=== PATIENT | male | born 1940 | race Caucasian/White ===

== ENCOUNTER → 2020-05-01 12:48 | Outpatient (BNVA) | payer MEDICARE, OTHER, SELFPAY | PROVIDERS: PCP Internal Medicine; Referring Provider Internal Medicine; Visit Provider Hospitalist | DX: J84.112 Idiopathic pulmonary fibrosis (principal); I35.1 Nonrheumatic aortic (valve) insufficiency; Z79.899 Other long term (current) drug therapy | CPT/HCPCS: 99212 ==

== ENCOUNTER 2020-06-19 07:16 | Outpatient (REF) | payer MEDICARE, OTHER, SELFPAY ==
[2020-06-19 07:59] LABS: MANUAL DIFF FLAG NO
[2020-06-19 08:01] LABS: Basophils Percent Auto 0.6 % (0-2); Eosinophils Absolute Auto 0.1 X10*3/uL (0.0-0.4); Eosinophils Percent Auto 1.6 % (0-4); Hematocrit 45.6 % (42-52); Imm Gran Abs Auto 0.02 X10*3/uL (0.00-0.03); Imm Gran Pct Auto 0.3 % (0.0-0.4); Lymphocytes Percent Auto 28.9 % (20-40); Mean Corpuscular HGB Conc 35.1 g/dl (31.0-36.0); Mean Platelet Volume 9.4 fL (9.4-12.4); Monocytes Absolute Auto 0.7 X10*3/uL (0.1-1.2); Monocytes Percent Auto 10.4 % (2-11); Neutrophils Absolute Auto 4.1 X10*3/uL (2.0-8.3); Neutrophils Percent Auto 58.2 % (45-73); Platelet Count 208 X10*3/uL (160-400); Red Cell Distribution Width 13.2 % (11.0-16.0); White Blood Count 7.1 X10*3/uL (4.8-10.8)
[2020-06-19 09:17] LABS: Erythrocyte Sedimentation Rate 5 MM/HR (0-15)
[2020-06-20 14:01] LABS: Scleroderma 70 Antibody <1.0 NEG AI (<1.0 NEG)
[2020-06-20 21:12] LABS: Cyclic Citrullinated Peptide <16 UNITS
[2020-06-23 10:01] LABS: Anti Nuclear Antibody Screen POSITIVE
[2020-06-24 01:48] LABS: Immunoglobulin E 23 kU/L (<OR=114)
[2020-06-25 19:42] LABS: Angiotensin Converting Enzyme 31 U/L (9-67)
[2020-06-25 20:08] LABS: Asperg fumigatus Precip Abs NEGATIVE (NEGATIVE); Micropoly faeni Abs NEGATIVE (NEGATIVE); Pigeon serum Abs NEGATIVE (NEGATIVE); Saccharo pora viridis Abs NEGATIVE (NEGATIVE); Thermo candidus Abs NEGATIVE (NEGATIVE); Thermoa vulgaris #1 NEGATIVE (NEGATIVE)
== END 2020-06-19 07:17 | disposition home or self-care (01) ==
LOC: HO.LAB 07:16
PROVIDERS: PCP Internal Medicine; Visit Provider Hospitalist
DX: J84.9 Interstitial pulmonary disease, unspecified (principal)
CPT/HCPCS: 36415; 82164; 82785; 85025; 85652; 86038; 86039; 86200; 86235; 86331; 86606; 86609

== ENCOUNTER → 2020-07-31 10:13 | Outpatient (BNVA) | payer MEDICARE, OTHER, SELFPAY | PROVIDERS: PCP Internal Medicine; Visit Provider Hospitalist | DX: Z76.89 Persons encountering health services in other specified circumstances (principal) | CPT/HCPCS: Q3014 ==

== ENCOUNTER 2021-02-09 09:48 | Outpatient (REF) | payer MEDICARE, OTHER, SELFPAY ==
--- NOTE | 2021-02-09 17:41 | PFT_ITS ---
Forced vital capacity is slightly decreased. FEV1, EWM41-25, and MVV are all normal. Post bronchodilator therapy, there is no significant change. Total lung capacity and residual volume slightly decreased. Diffusion capacity moderately decreased. CONCLUSION: No obstructive airway disorder. Mild restrictive pulmonary disorder. No response to bronchodilator therapy. Clinical correlation recommended. MD MIKHAIL Harrsion/DANIEL / [id number]
== END 2021-02-09 09:49 | disposition home or self-care (01) ==
LOC: HO.RESP 09:48
PROVIDERS: PCP Internal Medicine; Visit Provider Hospitalist
DX: J84.112 Idiopathic pulmonary fibrosis (principal); J84.9 Interstitial pulmonary disease, unspecified; J84.10 Pulmonary fibrosis, unspecified; J98.4 Other disorders of lung
CPT/HCPCS: 94060; 94727; 94729; 99212

== ENCOUNTER → 2021-08-27 09:07 | Outpatient (BNVA) | payer MEDICARE, OTHER, SELFPAY | PROVIDERS: PCP Internal Medicine; Visit Provider Hospitalist | DX: J84.9 Interstitial pulmonary disease, unspecified (principal); J84.10 Pulmonary fibrosis, unspecified; J84.112 Idiopathic pulmonary fibrosis; J98.4 Other disorders of lung | CPT/HCPCS: 99212 ==

== ENCOUNTER 2022-03-17 08:22 | Outpatient (REF) | payer MEDICARE, OTHER, SELFPAY ==
--- NOTE | ~2022-03-17 | CT_ITS ---
EXAMINATION: CT CHEST WITHOUT CONTRAST CLINICAL INFORMATION: Pulmonary fibrosis follow-up. COMPARISON: CT chest 02/27/2020. TECHNIQUE: Multidetector volumetric CT imaging of the chest was done. Axial MIP volume rendering provided. Sagittal and coronal reformatted images were obtained. This CT examination was performed using dose optimization techniques as appropriate, variously including the following: *Automated exposure control *Adjustment of mA and/or kV according to patient size (this includes techniques or standardized protocols for targeted exams where dose is matched to indication/reason for exam; i.e. extremities or head) *Use of iterative reconstruction technique DLP: 217 mGy-cm FINDINGS: STEEL TESTER: Well-expanded lungs. LUNGS: There is patchy parenchymal opacity and ground-glass density in the right lung apex with cystic changes and bronchiectasis in the right upper lobe slightly more prominent than the previous study. In addition a few scattered parenchymal opacities are also seen in the left upper lobe anteriorly and some ground-glass haziness as well. The dependent bilateral lower lobe prominent cystic changes seen are likely secondary to subpleural interstitial thickening and ground-glass attenuation. There is subpleural thickening as well in the right middle lobe and right lower lobe. Traction bronchiectasis is seen in both lower lobes. There are cystic changes. There is a 4 mm nodule in the right upper lobe axial image 49/6, subpleural anterior right upper lobe middle lobe 6 mm axial image 79/6, 6 mm parahilar right upper lobe nodule axial image 74/6, triangular-shaped nodule left lower lobe axial image 88/6, and a 4mm nodule centrally in the left upper lobe/lingula on axial image 95/6. MEDIASTINUM: Heart size is enlarged. No pericardial effusion is seen. Great vessels are of normal caliber. Thyroid lobes are symmetrical. The central trachea and the bronchi are widely patent. CORONARY ARTERY CALCIFICATION: There are mild coronary artery calcifications present. PLEURA: There is no pleural effusion. No pleural mass or thickening. AXILLA: There are small shotty lymph nodes in the bilateral axilla. UPPER ABDOMEN: Visualized liver, spleen, pancreas and bilateral adrenal glands are unremarkable. There are bilateral renal cysts. OSSEOUS STRUCTURES: No lytic or sclerotic process seen. There is mild ventral spondylosis of the mid and lower dorsal spine. CT/CT chest wo IV con IMPRESSION: Chronic interstitial lung changes Bilateral pulmonary nodules are stable. No new appearing nodules or acute consolidation seen. No abnormally sized mediastinal or hilar lymph nodes are seen. Fleischner guidelines were followed.
== END 2022-03-17 08:23 | disposition home or self-care (01) ==
LOC: HO.CT 08:22
PROVIDERS: PCP Internal Medicine; Visit Provider Hospitalist
DX: J98.4 Other disorders of lung (principal); J84.9 Interstitial pulmonary disease, unspecified; J84.10 Pulmonary fibrosis, unspecified
CPT/HCPCS: 71250

== ENCOUNTER → 2022-04-15 10:11 | Outpatient (BNVA) | payer MEDICARE, OTHER, SELFPAY | PROVIDERS: PCP Internal Medicine; Visit Provider Hospitalist | DX: J98.4 Other disorders of lung (principal); J84.9 Interstitial pulmonary disease, unspecified; J84.112 Idiopathic pulmonary fibrosis | CPT/HCPCS: 99212 ==

== ENCOUNTER 2023-02-09 11:14 | Outpatient (REF) | payer MEDICARE, OTHER, SELFPAY ==
--- NOTE | 2023-02-09 12:29 | PFT_ITS ---
FLOWS: 1. FEV1 78% of predicted at 2.22 L. 2. FVC 66% of predicted at 2.66 L. 3. FEV1 to FVC ratio of 0.83. 4. No bronchodilator response. LUNG VOLUMES: 1. Total lung capacity 60% of predicted at 4.26 L. 2. Residual volume 63% of predicted at 1.68 L. 3. Slow vital capacity 58% of predicted at 2.58 L. 4. Expiratory reserve volume 42% of predicted at 0.50 L. 5. Diffusion capacity is moderately decreased. Diffusion capacity had just been mildly decreased after correction for alveolar ventilation. IMPRESSION: Moderate restrictive ventilatory defect with no bronchodilator response. Combination of decreased diffusion capacity with restrictive ventilatory defect suggests underlying pulmonary parenchymal disease. Clinical correlation is advised. MD CHRIS Dan/MODL / [id number]
== END 2023-02-09 11:15 | disposition home or self-care (01) ==
LOC: HO.RESP 11:14
PROVIDERS: PCP Internal Medicine; Visit Provider Hospitalist
DX: J84.9 Interstitial pulmonary disease, unspecified (principal)
CPT/HCPCS: 94060; 94727; 94729

== ENCOUNTER → 2023-02-09 12:29 | Outpatient (BNV) | payer MEDICARE, OTHER, SELFPAY | PROVIDERS: PCP Internal Medicine; Visit Provider Internal Medicine Pulmonary Disease | DX: J84.9 Interstitial pulmonary disease, unspecified (principal) | CPT/HCPCS: 94060; 94727; 94729 ==

== ENCOUNTER 2023-05-09 10:05 | Outpatient (AMB) | payer MEDICARE, OTHER, SELFPAY ==
[2023-05-09 10:12] VITALS: BP 118/70; PULSE 90; O2SAT 95; BMI 26.6
--- NOTE | 2023-05-09 10:12 | A.OFFVIS_ITS ---
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 He was evaluated last year. Last year in September 2018 he did have a repeat CT scan of the chest done at [facility] demonstrating some slight interval progression of 8 interstitial lung disease. In addition to that he had multiple nodules measuring up to 5 mm in size. The patient has been doing relatively well denies any significant dyspnea on exertion. Denies any coughing or any chest pain. He continues to use the QVAR with good effect. He is due for another CT scan also repeat his pulmonary function studies. His last pulmonary function studies from 2016 demonstrated mild restrictive ventilatory defect consistent with this interstitial lung disease. 05/01/2020 the patient is here for pulmonary follow-up visit. Overall he feels well. He continues to exercise regularly. Sometimes walking 2-4 miles a day. He continues to stay busy. He has not noticed any significant worsening in the shortness of breath. He does have dyspnea on exertion mild in severity. He continues with the Flovent inhaler. He has not really noticed any improvement or any worsening. In the meantime we did review his CT scan of the chest and also his pulmonary function studies. It appears that he is having some interval worsening of the interstitial lung disease. There was a good amount of peripheral and basilar fibrosis with some honeycombing at the bases. He also has some areas of ground-glass opacities to a lesser amount. At this point she does not have any significant exposures. Will do additional testing to assess for chronic hypersensitivity pneumonitis and also to assess were connective tissue conditions. But this is suspicious that is in the form of idiopathic pulmonary fibrosis. I did talk about different anti fibrotic agents we can consider using. His pulmonary function studies do show interval worsening of his lung capacity within now moderate restrictive process and moderate to severe diffusion impairment. 07/31/2020 patient has a telephone visit. Overall the patient has been feeling well. His shortness of breath is been about the same. He had stop the inhaler has not noticed any significant worsening after stopping the inhaler. He was concerned about the side effects of potential anti fibrotic medications. Explained to him that the medicine due have side effects but the risk- benefits ratio needs to be considered needs to be considered especially if he has progressive interstitial lung disease. The patient will have repeat PFTs in 6 months which should be about a year since his last once. If there is any significant interval worsening of the pulmonary capacity then we would have to really consider different alternatives. Patient's was also on the phone. She was concerned about his potential progression of disease. She was wondering if going to [facility] for either her a 2nd opinion would be a good option. I did recommend that if they wanted to have a 2nd opinion to let me know and I will refer them. Therefore they will let me know. The meantime will follow up in 6 months after his PFTs. If however the patient is aware of worsening respiratory symptoms he is not to delay he is to call me to reassess the symptoms and her reassess his interstitial lung process. 02/09/2021 the patient is here for a pulmonary follow-up visit. Overall the patient has been feeling well. He is staying active. He did get a CPT device when he has been using on a daily basis. He feels like his breathing is about the same. He is exercising regularly. We again talked about the interstitial lung disease. Patient is happy with minimal medical interventions. He stopped using his inhaler as he has not needed it and did not feel like it was helping. In addition to that the patient did undergo pulmonary function studies and we were able to compare his PFTs from today to the ones from last year. It appears that his total lung capacity actually improved from 61% to 71% predicted. It is really reassuring. His gas exchange also is about the same and is spirometry numbers are about the same. Therefore since his numbers are better and the patient is doing well will follow-up with a CT scan in 6 months to address any ongoing changes of the interstitial lung disease. He continues to do well with the will need any medical interventions. If however the patient demonstrates any worsening symptoms he is to call me so we can address the issues on earlier time. Otherwise will follow up in [address] scan. 08/27/2021 the patient is here for a pulmonary follow-up visit. Overall feels about the same. He is staying active and doing continue walking. Denies any dyspnea on exertion. Except when going up a couple flights of stairs. Denies any worsening cough or any worsening respiratory symptoms. We did under go a brief walking oximetry in the patient's pulse ox did decrease down to about 91-92%. The patient was not symptomatic. The patient does not qualify for oxygen although he is low normal. Based on the decreased pulse oximetry will have him undergo a CT scan of the chest sometime in the fall 2021. Will follow- up with him after that. If the patient develops any worsening symptoms prior to that he is to call the office for an earlier evaluation. 04/15/2022 the patient is here for a pulmonary follow-up visit. Overall the patient is feeling well. No significant changes. Denies any cough or any chest discomfort. Denies any significant shortness of breath. He did have an interesting episode of neuropathic pain that was only transient lasting 1-2 weeks. Was vaccinated for change Goals he was not sure if it was related to the vaccine or something else. At this point the symptoms have gone away. He did undergo a CT scan of the chest that I personally reviewed recently. No si gnificant progression of his interstitial lung disease. I do believe there is some degree of evolution with the ground-glass opacities have become a little bit more reticular. But no new areas and this is reassuring. Based on the fact that there is no real progression of the interstitial lung disease there is no need to start antifibrotic agents at this time will plan to repeat his pulmonary function studies next year to see if there is any progression. If the patient has any worsening of his symptoms prior to that he is to call the office for an earlier evaluation. 05/09/2022 in brief the patient is here for a pulmonary follow-up visit. He has noticed increased shortness of breath throughout the year. Mild in severity. Also has noticed a worsening cough nasal congestion and ear pressure. He has been using the fluticasone nasal spray without any significant improvement. She is not using any inhalers. The patient did undergo pulmonary function studies which we personally reviewed together. It appears that his total lung capacity has dropped from 71% back in 2020 to now 60%. His if using capacity still 40%. Therefore based on his symptoms and daily worsening total l sean capacity will go ahead and request a CT scan at this time to see if there is any progression of his interstitial lung disease. If there is any worsening disease with consider starting low-dose amount of prednisone or start him on antifibrotic therapy depending on the appearance on the CT scan. [facility] Medical History (Updated 05/09/23 @ 13:37 by Yong Cheema MD) Chronic restrictive lung disease IPF (idiopathic pulmonary fibrosis) Aortic ejection murmur Chronic respiratory failure ILD (interstitial lung disease) Pulmonary fibrosis determined by high resolution computed tomography (Updated 02/09/21 @ 11:27 by RENETTA Zuniga) Patient Tobacco Use Status: Never used Tobacco Review of Systems Const Denies night sweats ENT Denies change in voice, Denies lip swelling, Denies mouth pain, Reports nasal congestion, Reports nasal discharge and Denies tongue swelling Card Denies chest pain and Reports dyspnea on exertion Resp Reports cough and Reports dyspnea on exertion GI Denies abdominal pain Musc Denies no additional complaints Neuro Denies Neuro-related abnormal movements Psych Denies no additional complaints Freedom/Lymph Denies easy bleeding and Denies lymphadenopathy Aller/Immun Denies lip swelling and Denies tongue swelling Physical Exam Vital Signs: Last Vital Signs Pulse 90 05/09/23 10:12 BP 118/70 05/09/23 10:12 Pulse Ox 95 05/09/23 10:12 Oxygen Delivery Method Room Air 05/09/23 10:12 BMI result Body Mass Index 26.6 Const General: alert HEENT General nose exam: Abnormal external nose present and Nasal discharge present Eyes Pupils: Equal, round and reactive pupils present Neck Neck: Yes normal visual inspection, Yes full ROM and Yes no lymphadenopathy Chest Chest palpation & inspection: normal inspection of the chest Resp Auscultation: rales bilateral at the base and diminished lung sounds Cardio Rate: regular rate Rhythm: regular rhythm Heart sounds: S1 normal heart sound present, S2 normal heart sound present, Murmur heart sound present systolic III/ and at the right sternal border and Normal, physiologic split S2 sound present GI Palpation (GI): Soft to palpation and nontender Auscultation: normal bowel sounds General: Yes no CVA tenderness Back/Spine/Pelvis Back: no CVA tenderness Skin General skin exam: rashes and/or lesions noted Neuro Cranial nerves: Yes Equal, round and reactive pupils present Assessment & Plan Assessment & Plan (1) ILD (interstitial lung disease): Code(s): J84.9 - Interstitial pulmonary disease, unspecified (2) Pulmonary fibrosis determined by high resolution computed tomography: Code(s): J84.10 - Pulmonary fibrosis, unspecified (3) IPF (idiopathic pulmonary fibrosis): Code(s): J84.112 - Idiopathic pulmonary fibrosis (4) Chronic restrictive lung disease: Comment: TLC 71%->60% Code(s): J98.4 - Other disorders of lung Plan - continue with pulmonary exercises -Conside fror antifibrotic therapy or prednisone if any evidence of progression on CT -CT Chest -Needs to continue with reflux diet and head of bed elevated to minimize micro aspirations into the lungs. -start anti histamines in am' -nasal rinsing with neti bottle with distilled water only -F/U 3-[address] chest Orders: Orders CT chest wo IV con Today J84.9 - Interstitial pulmonary disease, unspecified Medications: New cetirizine (Zyrtec) 10 mg PO DAILY 30 days PRN 30 tabs 3RF allergy symptoms Coding Level of Care Code Est Pt Level 4 (95085) Diagnoses ILD (interstitial lung disease) J84.9 Pulmonary fibrosis determined by high resolution computed tomography J84.10 IPF (idiopathic pulmonary fibrosis) J84.112 Chronic restrictive lung disease J98.4 Time Spent (min) 17
== END 2023-05-09 10:41 | disposition home or self-care (01) ==
PROVIDERS: PCP Internal Medicine; Visit Provider Hospitalist
DX: J84.9 Interstitial pulmonary disease, unspecified (principal); J84.10 Pulmonary fibrosis, unspecified; J84.112 Idiopathic pulmonary fibrosis; J98.4 Other disorders of lung
CPT/HCPCS: 99214

== ENCOUNTER → 2023-05-09 10:05 | Outpatient (BNVA) | payer MEDICARE, OTHER, SELFPAY | PROVIDERS: PCP Internal Medicine; Visit Provider Hospitalist | DX: J84.9 Interstitial pulmonary disease, unspecified (principal); J84.112 Idiopathic pulmonary fibrosis; J98.4 Other disorders of lung | CPT/HCPCS: 99212 ==

== ENCOUNTER 2023-07-08 13:00 | Outpatient (REF) | payer MEDICARE, OTHER, SELFPAY ==
--- NOTE | ~2023-07-08 | CT_ITS ---
EXAMINATION: CT CHEST WITHOUT CONTRAST CLINICAL INFORMATION: Interstitial pulmonary disease. COMPARISON: 03/17/2022 and 02/27/2020 TECHNIQUE: Multidetector volumetric CT imaging of the chest was done. Axial MIP volume rendering provided. Sagittal and coronal reformatted images were obtained. This CT examination was performed using dose optimization techniques as appropriate, variously including the following: *Automated exposure control *Adjustment of mA and/or kV according to patient size (this includes techniques or standardized protocols for targeted exams where dose is matched to indication/reason for exam; i.e. extremities or head) *Use of iterative reconstruction technique DLP: 146 mGy-cm FINDINGS: LUNGS: Subpleural reticular changes bilaterally with peripheral/subpleural groundglass opacities. There is bilateral traction bronchiectasis as well as thickening of the intralobular septa. No evidence of honeycombing. 5 mm subpleural nodule right upper lobe on image 83 series 11. 6 mm nodule left lower lobe on image 83 series 11. 5 mm perihilar nodule in the right upper lobe on image 58 of series 11. 3 mm nodule right upper lobe on image 46 of series 11. These nodules appear stable dating back to 02/27/2020. MEDIASTINUM: No bulky axillary, hilar or mediastinal lymphadenopathy. Dilated pulmonary arteries. Heart size is stable. No pericardial effusion. CORONARY ARTERY CALCIFICATION: Moderate. PLEURA: There is no pleural effusion. No pleural mass or thickening. UPPER ABDOMEN: Small hiatal hernia. OSSEOUS STRUCTURES: No destructive bone lesions. CT/CT chest wo IV con IMPRESSION: Progressive interstitial lung disease with a pattern suggestive of nonspecific interstitial pneumonitis. No change in bilateral pulmonary nodules since 02/27/2020.
== END 2023-07-08 13:01 | disposition home or self-care (01) ==
LOC: HO.CT 13:00
PROVIDERS: PCP Internal Medicine; Visit Provider Hospitalist
DX: J84.9 Interstitial pulmonary disease, unspecified (principal)
CPT/HCPCS: 71250

== ENCOUNTER 2023-08-15 09:25 | Outpatient (AMB) | payer MEDICARE, OTHER, SELFPAY ==
[2023-08-15 09:30] VITALS: BP 128/70; PULSE 92; O2SAT 96; BMI 25.8
--- NOTE | 2023-08-15 09:30 | A.OFFVIS_ITS ---
Intake Vital Signs 08/15/23 09:30 Height 5 ft 10 in Weight 180 lb BMI 25.8 BP 128/70 Blood Pressure Location Rt brachial Position Sitting Pulse 92 Pulse Source Pulse Oximeter Pulse Oximetry (%) 96 Oxygen Delivery Method Room Air Intake Visit Reasons: COPD Regulatory Agency Director Required: No Allergies lisinopril Allergy (Severe, Verified 08/15/23 09:33) Rash metoprolol Allergy (Intermediate, Verified 08/15/23 09:33) Rash HPI HPI Comments History of Present Illness Details The patient is a 83-year-old gentleman with a known history of allergic rhinitis, pulmonary nodules and interstitial lung disease. He was evaluated last year. Last year in September 2018 he did have a repeat CT scan of the chest done at [place] demonstrating some slight interval progression of 8 interstitial lung disease. In addition to that he had multiple nodules measuring up to 5 mm in size. The patient has been doing relatively well denies any significant dyspnea on exertion. Denies any coughing or any chest pain. He continues to use the QVAR with good effect. He is due for another CT scan also repeat his pulmonary function studies. His last pulmonary function studies from 2016 demonstrated mild restrictive ventilatory defect consistent with this interstitial lung disease. 05/01/2020 the patient is here for pulmonary follow-up visit. Overall he feels well. He continues to exercise regularly. Sometimes walking 2-4 miles a day. He continues to stay busy. He has not noticed any significant worsening in the shortness of breath. He does have dyspnea on exertion mild in severity. He continues with the Flovent inhaler. He has not really noticed any improvement or any worsening. In the meantime we did review his CT scan of the chest and also his pulmonary function studies. It appears that he is having some interval worsening of the interstitial lung disease. There was a good amount of peripheral and basilar fibrosis with some honeycombing at the bases. He also has some areas of ground-glass opacities to a lesser amount. At this point she does not have any significant exposures. Will do additional testing to assess for chronic hypersensitivity pneumonitis and also to assess were connective tissue conditions. But this is suspicious that is in the form of idiopathic pulmonary fibrosis. I did talk about different anti fibrotic agents we can consider using. His pulmonary function studies do show interval worsening of his lung capacity within now moderate restrictive process and moderate to severe diffusion impairment. 07/31/2020 patient has a telephone visit. Overall the patient has been feeling well. His shortness of breath is been about the same. He had stop the inhaler has not noticed any significant worsening after stopping the inhaler. He was concerned about the side effects of potential anti fibrotic medications. Explained to him that the medicine due have side effects but the risk- benefits ratio needs to be considered needs to be considered especially if he has pr ogressive interstitial lung disease. The patient will have repeat PFTs in 6 months which should be about a year since his last once. If there is any significant interval worsening of the pulmonary capacity then we would have to really consider different alternatives. Patient's was also on the phone. She was concerned about his potential progression of disease. She was wondering if going to [facility] for either her a 2nd opinion would be a good option. I did recommend that if they wanted to have a 2nd opinion to let me know and I will refer them. Therefore they will let me know. The meantime will follow up in 6 months after his PFTs. If however the patient is aware of worsening respiratory symptoms he is not to delay he is to call me to reassess the symptoms and her reassess his interstitial lung process. 02/09/2021 the patient is here for a pulmonary follow-up visit. Overall the patient has been feeling well. He is staying active. He did get a CPT device when he has been using on a daily basis. He feels like his breathing is about the same. He is exercising regularly. We again talked about the interstitial lung disease. Patient is happy with minimal medical interventions. He stopped using his inhaler as he has not needed it and did not feel like it was helping. In addition to that the patient did undergo pulmonary function studies and we were able to compare his PFTs from today to the ones from last year. It appears that his total lung capacity actually improved from 61% to 71% predicted. It is really reassuring. His gas exchange also is about the same and is spirometry numbers are about the same. Therefore since his numbers are better and the patient is doing well will follow-up with a CT scan in 6 months to address any ongoing changes of the interstitial lung disease. He continues to do well with the will need any medical interventions. If however the patient demonstrates any worsening symptoms he is to call me so we can address the issues on earlier time. Otherwise will follow up in [address] scan. 08/27/2021 the patient is here for a pulmonary follow-up visit. Overall feels about the same. He is staying active and doing continue walking. Denies any dyspnea on exertion. Except when going up a couple flights of stairs. Denies any worsening cough or any worsening respiratory symptoms. We did undergo a brief walking oximetry in the patient's pulse ox did decrease down to about 91-92%. The patient was not symptomatic. The patient does not qualify for oxygen although he is low normal. Based on the decreased pulse oximetry will have him undergo a CT scan of the chest sometime in the fall 2021. Will follow-up with him after that. If the patient develops any worsening symptoms prior to that he is to call the office for an earlier evaluation. 04/15/2022 the patient is here for a pulmonary follow-up visit. Overall the patient is feeling well. No significant changes. Denies any cough or any chest discomfort. Denies any significant shortness of breath. He did have an interesting episode of neuropathic pain that was only transient lasting 1-2 weeks. Was vaccinated for change Goals he was not sure if it was related to the vaccine or something else. At this point the symptoms have gone away. He did undergo a CT scan of the chest that I personally reviewed recently. No significant progression of his interstitial lung disease. I do believe there is some degree of evolution with the ground-glass opacities have become a little bit more reticular. But no new areas and this is reassuring. Based on the fact that there is no real progression of the interstitial lung disease there is no need to start antifibrotic agents at this time will plan to repeat his pulmonary function studies next year to see if there is any progression. If the patient has any worsening of his symptoms prior to that he is to call the office for an earlier evaluation. 05/09/2022 in brief the patient is here for a pulmonary follow-up visit. He has noticed increased shortness of breath throughout the year. Mild in severity. Also has noticed a worsening cough nasal congestion and ear pressure. He has been using the fluticasone nasal spray without any significant improvement. She is not using any inhalers. The patient did undergo pulmonary function studies which we personally reviewed together. It appears that his total lung capacity has dropped from 71% back in 2020 to now 60%. His if using capacity still 40%. Therefore based on his symptoms and daily worsening total lung capacity will go ahead and request a CT scan at this time to see if there is any progression of his interstitial lung disease. If there is any worsening disease with consider starting low-dose amount of prednisone or start him on antifibrotic therapy depending on the appearance on the CT scan. 08/15/2023 the patient is here for pulmonary follow-up visit. Overall he is doing fairly well. He does have an intermittent cough that seems to be getting worse. Moderate severity. Also dyspnea on exertion, [id number] in severity. The patient did have a CT scan of the chest that we personally reviewed. It appears that he has not been some interval progression of the interstitial lung disease primarily the left lung that was not as involved. Appears to have some areas of ground-glass opacities and also reticular changes suggesting a nonspecific interstitial pneumonia likely fibrotic type. We did talk about considering medications at this point based on his worsening symptoms and worsening findings on the CT scan. The patient is agreeable to starting a small dose of prednisone. We did talk about Ofev but the patient would like to hold off on that at this time. Right now he is did not with significant issues with his in health now that she has been diagnosed with stage IV renal cell cancer. Therefore here given start 10 mg of prednisone and then taper to 10 mg every other day. After 6-8 weeks given wean off it. Will follow-up in 3 months. If the patient has any worsening symptoms prior to that he will call for an earlier assessment. [facility] Medical History (Updated 05/09/23 @ 13:37 by Yong Cheema MD) Chronic restrictive lung disease IPF (idiopathic pulmonary fibrosis) Aortic ejection murmur Chronic respiratory failure ILD (interstitial lung disease) Pulmonary fibrosis determined by high resolution computed tomography Social History (Updated 02/09/21 @ 11:27 by RENETTA Zuniga) Patient Tobacco Use Status: Never used Tobacco Review of Systems Const Denies night sweats ENT Denies change in voice, Denies lip swelling, Denies mouth pain, Reports nasal congestion, Reports nasal discharge and Denies tongue swelling Card Denies chest pain and Reports dyspnea on exertion Resp Reports cough and Reports dyspnea on exertion GI Denies abdominal pain Musc Denies no additional complaints Neuro Denies Neuro-related abnormal movements Psych Denies no additional complaints Freedom/Lymph Denies easy bleeding and Denies lymphadenopathy Aller/Immun Denies lip swelling and Denies tongue swelling Physical Exam Vital Signs: Last Vital Signs Pulse 92 08/15/23 09:30 BP 128/70 08/15/23 09:30 Pulse Ox 96 08/15/23 09:30 Oxygen Delivery Method Room Air 08/15/23 09:30 BMI result Body Mass Index 25.8 Const General: alert HEENT General nose exam: Abnormal external nose present and Nasal discharge present Eyes Pupils: Equal, round and reactive pupils present Neck Neck: Yes normal visual inspection, Yes full ROM and Yes no lymphadenopathy Chest Chest palpation & inspection: normal inspection of the chest Resp Auscultation: rales bilateral at the base and diminished lung sounds Cardio Rate: regular rate Rhythm: regular rhythm Heart sounds: S1 normal heart sound present, S2 normal heart sound present, Murmur heart sound present systolic III/ and at the right sternal border and Normal, physiologic split S2 sound present GI Palpation (GI): Soft to palpation and nontender Auscultation: normal bowel sounds General: Yes no CVA tenderness Back/Spine/Pelvis Back: no CVA tenderness Skin General skin exam: rashes and/or lesions noted Neuro Cranial nerves: Yes Equal, round and reactive pupils present Assessment & Plan Assessment & Plan (1) ILD (interstitial lung disease): Code(s): J84.9 - Interstitial pulmonary disease, unspecified (2) Pulmonary fibrosis determined by high resolution computed tomography: Code(s): J84.10 - Pulmonary fibrosis, unspecified (3) IPF (idiopathic pulmonary fibrosis): Code(s): J84.112 - Idiopathic pulmonary fibrosis (4) Chronic restrictive lung disease: Comment: TLC 71%->60% Code(s): J98.4 - Other disorders of lung Plan - continue with pulmonary exercises -Conside fror antifibrotic therapy or prednisone if any evidence of progression on CT start low dose prednisone x 6-8 weeks -CT Chest (interval worsening, slowly) -Needs to continue with reflux diet and head of bed elevated to minimize micro aspirations into the lungs. -nasal rinsing with neti bottle with distilled water only -F/U 3-4 months Medications: New prednisone 10 mg PO DAILY 30 days 30 tabs 3RF Coding Level of Care Code Est Pt Level 4 (06667) Diagnoses ILD (interstitial lung disease) J84.9 Pulmonary fibrosis determined by high resolution computed tomography J84.10 IPF (idiopathic pulmonary fibrosis) J84.112 Chronic restrictive lung disease J98.4 Time Spent (min) 17
== END 2023-08-15 10:04 | disposition home or self-care (01) ==
PROVIDERS: PCP Internal Medicine; Visit Provider Hospitalist
DX: J84.9 Interstitial pulmonary disease, unspecified (principal); J84.10 Pulmonary fibrosis, unspecified; J84.112 Idiopathic pulmonary fibrosis; J98.4 Other disorders of lung
CPT/HCPCS: 99214

== ENCOUNTER → 2023-08-15 09:25 | Outpatient (BNVA) | payer MEDICARE, OTHER, SELFPAY | PROVIDERS: PCP Internal Medicine; Visit Provider Hospitalist | DX: J84.9 Interstitial pulmonary disease, unspecified (principal); J84.10 Pulmonary fibrosis, unspecified; J84.112 Idiopathic pulmonary fibrosis; J98.4 Other disorders of lung | CPT/HCPCS: 99212 ==

== ENCOUNTER 2023-11-23 08:48 | Outpatient (AMB) | payer MEDICARE, OTHER, SELFPAY ==
--- NOTE | 2023-11-23 08:54 | A.OFFVIS_ITS ---
Vital Signs 11/23/23 08:55 Height 5 ft 10 in Weight 185 lb BMI 26.5 Pulse 89 Pulse Source Pulse Oximeter Pulse Oximetry (%) 94 Oxygen Delivery Method Room Air Intake Visit Reasons: COPD Allergies lisinopril Allergy (Severe, Verified 11/23/23 08:56) Rash metoprolol Allergy (Intermediate, Verified 11/23/23 08:56) Rash HPI Comments Details: The patient is a 83-year-old gentleman with a known history of allergic rhinitis, pulmonary nodules and interstitial lung disease. He was evaluated last year. Last year in September 2018 he did have a repeat CT scan of the chest done at [facility] demonstrating some slight interval progression of 8 interstitial lung disease. In addition to that he had multiple nodules measuring up to 5 mm in size. The patient has been doing relatively well denies any significant dyspnea on exertion. Denies any coughing or any chest pain. He continues to use the QVAR with good effect. He is due for another CT scan also repeat his pulmonary function studies. His last pulmonary function studies from 2016 demonstrated mild restrictive ventilatory defect consistent with this interstitial lung disease. 05/01/2020 the patient is here for pulmonary follow-up visit. Overall he f eels well. He continues to exercise regularly. Sometimes walking 2-4 miles a day. He continues to stay busy. He has not noticed any significant worsening in the shortness of breath. He does have dyspnea on exertion mild in severity. He continues with the Flovent inhaler. He has not really noticed any improvement or any worsening. In the meantime we did review his CT scan of the chest and also his pulmonary function studies. It appears that he is having some interval worsening of the interstitial lung disease. There was a good amount of peripheral and basilar fibrosis with some honeycombing at the bases. He also has some areas of ground-glass opacities to a lesser amount. At this point she does not have any significant exposures. Will do additional testing to assess for chronic hypersensitivity pneumonitis and also to assess were connective tissue conditions. But this is suspicious that is in the form of idiopathic pulmonary fibrosis. I did talk about different anti fibrotic agents we can consider using. His pulmonary function studies do show interval worsening of his lung capacity within now moderate restrictive process and moderate to severe diffusion impairment. 07/31/2020 patient has a telephone visit. Overall the patient has been feeling well. His shortness of breath is been about the same. He had stop the inhaler has not noticed any significant worsening after stopping the inhaler. He was concerned about the side effects of potential anti fibrotic medications. Explained to him that the medicine due have side effects but the risk- benefits ratio needs to be considered needs to be considered especially if he has progressive interstitial lung disease. The patient will have repeat PFTs in 6 months which should be about a year since his last once. If there is any significant interval worsening of the pulmonary capacity then we would have to really consider different alternatives. Patient's was also on the phone. She was concerned about his potential progression of disease. She was wondering if going to [facility] for either her a 2nd opinion would be a good option. I did recommend that if they wanted to have a 2nd opinion to let me know and I will refer them. Therefore they will let me know. The meantime will follow up in 6 months after his PFTs. If however the patient is aware of worsening respiratory symptoms he is not to delay he is to call me to reassess the symptoms and her reassess his interstitial lung process. 02/09/2021 the patient is here for a pulmonary follow-up visit. Overall the patient has been feeling well. He is staying active. He did get a CPT device when he has been using on a daily basis. He feels like his breathing is about the same. He is exercising regularly. We again talked about the interstitial lung disease. Patient is happy with minimal medical interventions. He stopped using his inhaler as he has not needed it and did not feel like it was helping. In addition to that the patient did undergo pulmonary function studies and we were able to compare his PFTs from today to the ones from last year. It appears that his total lung capacity actually improved from 61% to 71% predicted. It is really reassuring. His gas exchange also is about the same and is spirometry numbers are about the same. Therefore since his numbers are better and the patient is doing well will follow-up with a CT scan in 6 months to address any ongoing changes of the interstitial lung disease. He continues to do well with the will need any medical interventions. If however the patient demonstrates any worsening symptoms he is to call me so we can address the issues on earlier time. Otherwise will follow up in [address] scan. 08/27/2021 the patient is here for a pulmonary follow-up visit. Overall feels about the same. He is staying active and doing continue walking. Denies any dyspnea on exertion. Except when going up a couple flights of stairs. Denies any worsening cough or any worsening respiratory symptoms. We did undergo a brief walking oximetry in the patient's pulse ox did decrease down to about 91-92%. The patient was not symptomatic. The patient does not qualify for oxygen although he is low normal. Based on the decreased pulse oximetry will have him undergo a CT scan of the chest sometime in the fall 2021. Will follow-up with him after that. If the patient develops any worsening symptoms prior to that he is to call the office for an earlier evaluation. 04/15/2022 the patient is here for a pulmonary follow-up visit. Overall the patient is feeling well. No significant changes. Denies any cough or any chest discomfort. Denies any significant shortness of breath. He did have an interesting episode of neuropathic pain that was only transient lasting 1-2 weeks. Was vaccinated for change Goals he was not sure if it was related to the vaccine or something else. At this point the symptoms have gone away. He did undergo a CT scan of the chest that I personally reviewed recently. No significant progression of his interstitial lung disease. I do believe there is some degree of evolution with the ground-glass opacities have become a little bit more reticular. But no new areas and this is reassuring. Based on the fact that there is no real progression of the interstitial lung disease there is no need to start antifibrotic agents at this time will plan to repeat his pulmonary function studies next year to see if there is any progression. If the patient has any worsening of his symptoms prior to that he is to call the office for an earlier evaluation. 05/09/2022 in brief the patient is here for a pulmonary follow-up visit. He has noticed increased shortness of breath throughout the year. Mild in severity. Also has noticed a worsening cough nasal congestion and ear pressure. He has been using the fluticasone nasal spray without any significant improvement. She is not using any inhalers. The patient did undergo pulmonary function studies which we personally reviewed together. It appears that his total lung capacity has dropped from 71% back in 2020 to now 60%. His if using capacity still 40%. Therefore based on his symptoms and daily worsening total lung capacity will go ahead and request a CT scan at this time to see if there is any progression of his interstitial lung disease. If there is any worsening disease with consider starting low-dose amount of prednisone or start him on antifibrotic therapy depending on the appearance on the CT scan. 08/15/2023 the patient is here for pulmonary follow-up visit. Overall he is doing fairly well. He does have an intermittent cough that seems to be getting worse. Moderate severity. Also dyspnea on exertion, [id number] in sev erity. The patient did have a CT scan of the chest that we personally reviewed. It appears that he has not been some interval progression of the interstitial lung disease primarily the left lung that was not as involved. Appears to have some areas of ground-glass opacities and also reticular changes suggesting a nonspecific interstitial pneumonia likely fibrotic type. We did talk about considering medications at this point based on his worsening symptoms and worsening findings on the CT scan. The patient is agreeable to starting a small dose of prednisone. We did talk about Ofev but the patient would like to hold off on that at this time. Right now he is did not with significant issues with his in health now that she has been diagnosed with stage IV renal cell cancer. Therefore here given start 10 mg of prednisone and then taper to 10 mg every other day. After 6-8 weeks given wean off it. Will follow-up in 3 months. If the patient has any worsening symptoms prior to that he will call for an earlier assessment. 11/23/2023 the patient is here for a pulmonary follow-up visit. He completed the course of prednisone. Did not see any significant improvement in his breathing. He is still going to the gym and staying active. He has still grieving the loss of his who a couple months ago. The patient does have significant crackles on examination. In view of his worsening interstitial lung disease in the appearance of idiopathic pulmonary fibrosis I do believe that he had be a good candidate for Ofev. Will go ahead and submit a prescription at this time. Will have also undergo a chest x-ray and PFTs in the coming months. [facility] Medical History (Updated 05/09/23 @ 13:37 by Yong Cheema MD) Chronic restrictive lung disease IPF (idiopathic pulmonary fibrosis) Aortic ejection murmur Chronic respiratory failure ILD (interstitial lung disease) Pulmonary fibrosis determined by high resolution computed tomography Social History (Updated 02/09/21 @ 11:27 by RENETTA Zuniga) Patient Tobacco Use Status: Never used Tobacco Review of Systems Const Denies night sweats ENT Denies change in voice, Denies lip swelling, Denies mouth pain, Reports nasal congestion, Reports nasal discharge and Denies tongue swelling Card Denies chest pain and Reports dyspnea on exertion Resp Reports cough and Reports dyspnea on exertion GI Denies abdominal pain Musc Denies no additional complaints Neuro Denies Neuro-related abnormal movements Psych Denies no additional complaints Freedom/Lymph Denies easy bleeding and Denies lymphadenopathy Aller/Immun Denies lip swelling and Denies tongue swelling Physical Exam Vital Signs: Last Vital Signs Pulse 89 11/23/23 08:55 Pulse Ox 94 11/23/23 08:55 Oxygen Delivery Method Room Air 11/23/23 08:55 BMI result Body Mass Index 26.5 Const General: alert HEENT General nose exam: Abnormal external nose present and Nasal discharge present Eyes Pupils: Equal, round and reactive pupils present Neck Neck: Yes normal visual inspection, Yes full ROM and Yes no lymphadenopathy Chest Chest palpation & inspection: normal inspection of the chest Resp Auscultation: rales bilateral at the base and diminished lung sounds Cardio Rate: regular rate Rhythm: regular rhythm Heart sounds: S1 normal heart sound present, S2 normal heart sound present, Murmur heart sound present systolic III/ and at the right sternal border and Normal, physiologic split S2 sound present GI Palpation (GI): Soft to palpation and nontender Auscultation: normal bowel sounds General: Yes no CVA tenderness Back/Spine/Pelvis Back: no CVA tenderness Skin General skin exam: rashes and/or lesions noted Neuro Cranial nerves: Yes Equal, round and reactive pupils present Assessment & Plan Assessment & Plan (1) ILD (interstitial lung disease): Code(s): J84.9 - Interstitial pulmonary disease, unspecified Category: Medical (2) Pulmonary fibrosis determined by high resolution computed tomography: Code(s): J84.10 - Pulmonary fibrosis, unspecified Category: Medical (3) IPF (idiopathic pulmonary fibrosis): Code(s): J84.112 - Idiopathic pulmonary fibrosis Category: Medical (4) Chronic restrictive lung disease: Comment: TLC 71%->60% Code(s): J98.4 - Other disorders of lung Category: Medical Plan - continue with pulmonary exercises start OFEV PFTs/CXR 01/2024 -Needs to continue with reflux diet and head of bed elevated to minimize micro aspirations into the lungs. -nasal rinsing with neti bottle with distilled water only -F/U 4-6 months Orders: Orders PFT pulmonary function test Today XR chest 2V Today J84.10 - Pulmonary fibrosis, unspecified, J84.112 - Idiopathic pulmonary fibrosis, J84.9 - Interstitial pulmonary disease, unspecified Coding Level of Care Code Est Pt Level 4 (66005) Diagnoses ILD (interstitial lung disease) J84.9 Pulmonary fibrosis determined by high resolution computed tomography J84.10 IPF (idiopathic pulmonary fibrosis) J84.112 Chronic restrictive lung disease J98.4 Time Spent (min) 17
[2023-11-23 08:55] VITALS: PULSE 89; O2SAT 94; BMI 26.5
== END 2023-11-23 09:13 | disposition home or self-care (01) ==
PROVIDERS: PCP Internal Medicine; Visit Provider Hospitalist
DX: J84.9 Interstitial pulmonary disease, unspecified (principal); J84.10 Pulmonary fibrosis, unspecified; J84.112 Idiopathic pulmonary fibrosis; J98.4 Other disorders of lung
CPT/HCPCS: 99214

== ENCOUNTER → 2023-11-23 08:48 | Outpatient (BNVA) | payer MEDICARE, OTHER, SELFPAY | PROVIDERS: PCP Internal Medicine; Visit Provider Hospitalist | DX: J84.9 Interstitial pulmonary disease, unspecified (principal); J98.4 Other disorders of lung; J84.112 Idiopathic pulmonary fibrosis; R91.8 Other nonspecific abnormal finding of lung field | CPT/HCPCS: 99212 ==

== ENCOUNTER 2024-04-25 08:57 | Outpatient (AMB) | payer MEDICARE, OTHER, SELFPAY ==
[2024-04-25 09:06] VITALS: BP 134/72; PULSE 89; O2SAT 91; BMI 26.3
--- NOTE | 2024-04-25 09:06 | MHC.OFFVIS ---
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 Required: No Memory Care Director: Memory Care Director offered & declined Accompanied by: Self / Same As Patient Allergies lisinopril Allergy (Severe, Verified 04/25/24 09:11) Rash metoprolol Allergy (Intermediate, Verified 04/25/24 09:11) Rash Medication List - Last Reconciled 04/25/24 by Marjorie Maldonado LPN amlodipine 7.5 mg PO DAILY cetirizine (Zyrtec) 10 mg PO DAILY PRN 30 days flu vacc [id number](65yr up)-PF mL IM fluticasone propionate 50 mcg/actuation 2 sprays intranasal DAILY multivitamin 1 tab PO DAILY nintedanib (Ofev) 150 mg PO Q12H omeprazole 20 mg PO DAILY prednisone 10 mg PO DAILY 30 days sildenafil 50 mg PO DAILY PRN simvastatin 20 mg PO BEDTIME varicella-zoster gE-AS01B (PF) 50 mcg/0.5 mL IM ONCE vitamins A,C,L-igzg-qqxbvq 2,148 mcg-113 mg-45 mg-17.4mg (PreserVision AREDS) 2 tabs PO BID HPI Comments Details: The patient is a 84-year-old gentleman with a known history of allergic rhinitis, pulmonary nodules and interstitial lung disease. He was evaluated last year. Last year in September 2018 he did have a repeat CT scan of the chest done at [facility] demonstrating some slight interval progression of 8 interstitial lung disease. In addition to that he had multiple nodules measuring up to 5 mm in size. The patient has been doing relatively well denies any significant dyspnea on exertion. Denies any coughing or any chest pain. He continues to use the QVAR with good effect. He is due for another CT scan also repeat his pulmonary function studies. His last pulmonary function studies from 2016 demonstrated mild restrictive ventilatory defect consistent with this interstitial lung disease. 05/01/2020 the patient is here for pulmonary follow-up visit. Overall he feels well. He continues to exercise regularly. Sometimes walking 2-4 miles a day. He continues to stay busy. He has not noticed any significant worsening in the shortness of breath. He does have dyspnea on exertion mild in severity. He continues with the Flovent inhaler. He has not really noticed any improvement or any worsening. In the meantime we did review his CT scan of the chest and also his pulmonary function studies. It appears that he is having some interval worsening of the interstitial lung disease. There was a good amount of peripheral and basilar fibrosis with some honeycombing at the bases. He also has some areas of ground-glass opacities to a lesser amount. At this point she does not have any significant exposures. Will do additional testing to assess for chronic hypersensitivity pneumonitis and also to assess were connective tissue conditions. But this is suspicious that is in the form of idiopathic pulmonary fibrosis. I did talk about different anti fibrotic agents we can consider using. His pulmonary function studies do show interval worsening of his lung capacity within now moderate restrictive process and moderate to severe diffusion impairment. 07/31/2020 patient has a telephone visit. Overall the patient has been feeling well. His shortness of breath is been about the same. He had stop the inhaler has not noticed any significant worsening after stopping the inhaler. He was concerned about the side effects of potential anti fibrotic medications. Explained to him that the medicine due have side effects but the risk- benefits ratio needs to be considered needs to be considered especially if he has progressive interstitial lung disease. The patient will have repeat PFTs in 6 months which should be about a year since his last once. If there is any significant interval worsening of the pulmonary capacity then we would have to really consider different alternatives. Patient's was also on the phone. She was concerned about his potential progression of disease. She was wondering if going to [place] for either her a 2nd opinion would be a good option. I did recommend that if they wanted to have a 2nd opinion to let me know and I will refer them. Therefore they will let me know. The meantime will follow up in 6 months after his PFTs. If however the patient is aware of worsening respiratory symptoms he is not to delay he is to call me to reassess the symptoms and her reassess his interstitial lung process. 02/09/2021 the patient is here for a pulmonary follow-up visit. Overall the patient has been feeling well. He is staying active. He did get a CPT device when he has been using on a daily basis. He feels like his breathing is about the same. He is exercising regularly. We again talked about the interstitial lung disease. Patient is happy with minimal medical interventions. He stopped using his inhaler as he has not needed it and did not feel like it was helping. In addition to that the patient did undergo pulmonary function studies and we were able to compare his PFTs from today to the ones from last year. It appears that his total lung capacity actually improved from 61% to 71% predicted. It is really reassuring. His gas exchange also is about the same and is spirometry numbers are about the same. Therefore since his numbers are better and the patient is doing well will follow-up with a CT scan in 6 months to address any ongoing changes of the interstitial lung disease. He continues to do well with the will need any medical interventions. If however the patient demonstrates any worsening symptoms he is to call me so we can address the issues on earlier time. Otherwise will follow up in [address] scan. 08/27/2021 the patient is here for a pulmonary follow-up visit. Overall feels about the same. He is staying active and doing continue walking. Denies any dyspnea on exertion. Except when going up a couple flights of stairs. Denies any worsening cough or any worsening respiratory symptoms. We did undergo a brief walking oximetry in the patient's pulse ox did decrease down to about 91-92%. The patient was not symptomatic. The patient does not qualify for oxygen although he is low normal. Based on the decreased pulse oximetry will have him undergo a CT scan of the chest sometime in the fall 2021. Will follow-up with him after that. If the patient develops any worsening symptoms prior to that he is to call the office for an earlier evaluation. 04/15/2022 the patient is here for a pulmonary follow-up visit. Overall the patient is feeling well. No significant changes. Denies any cough or any chest discomfort. Denies any significant shortness of breath. He did have an interesting episode of neuropathic pain that was only transient lasting 1-2 weeks. Was vaccinated for change Goals he was not sure if it was related to the vaccine or something else. At this point the symptoms have gone away. He did undergo a CT scan of the chest that I personally reviewed recently. No significant progression of his interstitial lung disease. I do believe there is some degree of evolution with the ground-glass opacities have become a little bit more reticular. But no new areas and this is reassuring. Based on the fact that there is no real progression of the interstitial lung disease there is no need to start antifibrotic agents at this time will plan to repeat his pulmonary function studies next year to see if there is any progression. If the patient has any worsening of his symptoms prior to that he is to call the office for an earlier evaluation. 05/09/2022 in brief the patient is here for a pulmonary follow-up visit. He has noticed increased shortness of breath throughout the year. Mild in severity. Also has noticed a worsening cough nasal congestion and ear pressure. He has been using the fluticasone nasal spray without any significant improvement. She is not using any inhalers. The patient did undergo pulmonary function studies which we personally reviewed together. It appears that his total lung capacity has dropped from 71% back in 2020 to now 60%. His if using capacity still 40%. Therefore based on his symptoms and daily worsening total lung capacity will go ahead and request a CT scan at this time to see if there is any progression of his interstitial lung disease. If there is any worsening disease with consider starting low-dose amount of prednisone or start him on antifibrotic therapy depending on the appearance on the CT scan. 08/15/2023 the patient is here for pulmonary follow-up visit. Overall he is doing fairly well. He does have an intermittent cough that seems to be getting worse. Moderate severity. Also dyspnea on exertion, [id number] in severity. The patient did have a CT scan of the chest that we personally reviewed. It appears that he has not been some interval progression of the interstitial lung disease primarily the left lung that was not as involved. Appears to have some areas of ground-glass opacities and also reticular changes suggesting a nonspecific interstitial pneumonia likely fibrotic type. We did talk about considering medications at this point based on his worsening symptoms and worsening findings on the CT scan. The patient is agreeable to starting a small dose of prednisone. We did talk about Ofev but the patient would like to hold off on that at this time. Right now he is did not with significant issues with his in health now that she has been diagnosed with stage IV renal cell cancer. Therefore here given start 10 mg of prednisone and then taper to 10 mg every other day. After 6-8 weeks given wean off it. Will follow-up in 3 months. If the patient has any worsening symptoms prior to that he will call for an earlier assessment. 11/23/2023 the patient is here for a pulmonary follow-up visit. He completed the course of prednisone. Did not see any significant improvement in his breathing. He is still going to the gym and staying active. He has still grieving the loss of his who a couple months ago. The patient does have significant crackles on examination. In view of his worsening interstitial lung disease in the appearance of idiopathic pulmonary fibrosis I do believe that he had be a good candidate for Ofev. Will go ahead and submit a prescription at this time. Will have also undergo a chest x-ray and PFTs in the coming months. 04/25/2024 the patient is here for pulmonary follow-up visit. The patient has been profoundly worsening dyspnea on exertion. Moderate severity. Seems to be progressively getting worse. He has been tolerating the Ofev. He has been tolerating the medication. He has also been complaining of worsening cough. He did follow-up with his primary care doctor recently. He set up to have an echocardiogram. His memory seems to be more significant at this time. During the visit we did go for a walking oximetry and the patient did desaturate down to 88% with activity. I did explain to him that he does qualify for oxygen. Although at this point like to hold off. We are going to reassess again in 3 months after he comes back with PFTs. Will have him get an x-ray as well. I suspect that he may have a lower respiratory infection. Will treat him a so. Also the cardiac issues may be contributing to his worsening respiratory symptoms. At least from a pulmonary fibrosis standpoint the alpha should be helping and also believe that his exam is really unchanged from a scarring standpoint. [facility] Medical History (Updated 05/09/23 @ 13:37 by Yong Cheema MD) Chronic restrictive lung disease IPF (idiopathic pulmonary fibrosis) Aortic ejection murmur Chronic respiratory failure ILD (interstitial lung disease) Pulmonary fibrosis determined by high resolution computed tomography Social History Patient Tobacco Use Status: Never used Tobacco Review of Systems Const Denies night sweats ENT Denies change in voice, Denies lip swelling, Denies mouth pain, Reports nasal congestion, Reports nasal discharge and Denies tongue swelling Card Denies chest pain and Reports dyspnea on exertion Resp Reports chest congestion, Reports cough and Reports dyspnea on exertion GI Denies abdominal pain Musc Denies no additional complaints Neuro Denies Neuro-related abnormal movements Psych Denies no additional complaints Freedom/Lymph Denies easy bleeding and Denies lymphadenopathy Aller/Immun Denies lip swelling and Denies tongue swelling Physical Exam Vital Signs: Last Vital Signs Pulse 89 04/25/24 09:06 BP 134/72 04/25/24 09:06 Pulse Ox 91 L 04/25/24 09:06 Oxygen Delivery Method Room Air 04/25/24 09:06 BMI result Body Mass Index 26.3 Const General: alert HEENT General nose exam: Abnormal external nose present and Nasal discharge present Eyes Pupils: Equal, round and reactive pupils present Neck Neck: Yes normal visual inspection, Yes full ROM and Yes no lymphadenopathy Chest Chest palpation & inspection: normal inspection of the chest Resp Auscultation: rales bilateral at the base and diminished lung sounds Cardio Rate: regular rate Rhythm: regular rhythm Heart sounds: S1 normal heart sound present, S2 normal heart sound present, Murmur heart sound present systolic III/ and at the right sternal border and Normal, physiologic split S2 sound present GI Palpation (GI): Soft to palpation and nontender Auscultation: normal bowel sounds General: Yes no CVA tenderness Back/Spine/Pelvis Back: no CVA tenderness Skin General skin exam: rashes and/or lesions noted Neuro Cranial nerves: Yes Equal, round and reactive pupils present Assessment & Plan Assessment & Plan (1) ILD (interstitial lung disease): Code(s): J84.9 - Interstitial pulmonary disease, unspecified Category: Medical (2) Pulmonary fibrosis determined by high resolution computed tomography: Code(s): J84.10 - Pulmonary fibrosis, unspecified Category: Medical (3) IPF (idiopathic pulmonary fibrosis): Code(s): J84.112 - Idiopathic pulmonary fibrosis Category: Medical (4) Chronic restrictive lung disease: Comment: TLC 71%->60% Code(s): J98.4 - Other disorders of lung Category: Medical Plan - start Doxy/prednisone x 5 days -Cardiology eval/ ECHO -continue OFEV PFTs/CXR -Needs to continue with reflux diet and head of bed elevated to minimize micro aspirations into the lungs. -nasal rinsing with neti bottle with distilled water only -F/U 2 months Orders: Orders XR chest 2V Today J98.4 - Other disorders of lung PFT pulmonary function test Today J84.9 - Interstitial pulmonary disease, unspecified Medications: New doxycycline hyclate 100 mg PO BID 10 days 20 caps 0RF prednisone PO daily; Take 2 tabs daily x 5 days, then 1 tablet daily x 5 days 10 days 15 tabs 0RF Coding Level of Care Code Est Pt Level 4 (72155) Complex EM visit Add On G2211 Diagnoses ILD (interstitial lung disease) J84.9 Pulmonary fibrosis determined by high resolution computed tomography J84.10 IPF (idiopathic pulmonary fibrosis) J84.112 Chronic restrictive lung disease J98.4 Time Spent (min) 17
== END 2024-04-25 09:36 | disposition home or self-care (01) ==
PROVIDERS: PCP Internal Medicine; Visit Provider Hospitalist
DX: J84.9 Interstitial pulmonary disease, unspecified (principal); J84.10 Pulmonary fibrosis, unspecified; J84.112 Idiopathic pulmonary fibrosis; J98.4 Other disorders of lung
CPT/HCPCS: 99214; G2211

== ENCOUNTER → 2024-04-25 08:57 | Outpatient (BNVA) | payer MEDICARE, OTHER, SELFPAY | PROVIDERS: PCP Internal Medicine; Visit Provider Hospitalist | DX: J84.9 Interstitial pulmonary disease, unspecified (principal); J44.9 Chronic obstructive pulmonary disease, unspecified; J84.10 Pulmonary fibrosis, unspecified; J84.112 Idiopathic pulmonary fibrosis; J98.4 Other disorders of lung | CPT/HCPCS: 99212 ==

== ENCOUNTER 2024-07-12 12:39 | Outpatient (REF) | payer MEDICARE, SELFPAY ==
--- NOTE | 2024-07-12 12:44 | PFT_ITS ---
Flows: FEV1: 75 % of predicted at 2.11 L FVC: 66 % of predicted at 2.51 L FEV1/FVC: 84 % Bronchodilator response: Patient declined bronchodilator testing Volumes: Total lung capacity: 52 % of predicted at 3.65 L Residual volume: 34 % of predicted at 0.94 L Slow vital capacity: 68 % of predicted at 2.71 L Expiratory reserve volume: 59 % of predicted at 0.73 L Diffusion capacity: Severely decreased, adjusts to being mildly decreased after correction for alveolar ventilation. Impression: Moderate restrictive ventilatory defect. Patient declined bronchodilator testing. Combination of restrictive ventilatory defect and decreased diffusion capacity suggests underlying pulmonary parenchymal disease. Clinical correlation is advised. MTDD
--- OUTSIDE RECORDS SUMMARY | 2024-07-12 16:28 | XMS_ITS | Clinical Summary ---
Author Organization [address] [place] [address] [place] [phone] Phone Care Team Providers Care Mash Tub Cooker Name Role Phone Singh Hernandez MD Primary Care Provider [phone] Allergies Active Allergy Reactions Criticality Noted Date Comments Lisinopril 10/26/2016 Metoprolol 10/26/2016 Medications Medication Sig Dispensed Refills Start Date End Date Status amLODIPine (NORVASC) 5 mg tablet Take 1.5 Tabs by mouth daily. 10/26/2016 Active aspirin 81 mg EC tablet Take 81 mg by mouth daily. 10/26/2016 Active beclomethasone (QNASL) 80 mcg/actuation HFA aerosol inhaler Inhale 1 Puff into the lungs daily. 02/16/2017 Active fluticasone HFA (Flovent HFA) 110 mcg/actuation inhaler TAKE 2 PUFFS INTO THE LUNGS TWICE A DAY 10/26/2018 Active fluticasone propionate (FLONASE) 50 mcg/actuation nasal spray INSTILL 2 SPRAYS IN AFFECTED NOSTRIL(S) EVERY DAY 10/26/2018 Active multivitamin (Multiple Vitamins) tablet Take 1 Tab by mouth daily. 10/26/2016 Active omeprazole (PriLOSEC) [address] capsule Take 20 mg by mouth daily. Active sildenafiL (VIAGRA) 50 mg tablet Take 50 mg by mouth as needed. 1 hour before needed 10/26/2016 Active simvastatin (ZOCOR) 20 mg tablet Take 20 mg by mouth at bedtime. 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 [address] [place] [address] Nodular calcific aortic valve stenosis from Last 3 Months Medical History Medical History Date Comments Aortic valve stenosis 10/26/2016 DX:Aortic valve stenosis Fibrosis of lung (CMS/HCC) 03/23/2017 DX:Fi brosis of lung (HCC) Hyperlipidemia 10/26/2016 DX:Hyperlipidemi a Hypertension 10/26/2016 DX:Hypertension Pulmonary nodule 02/16/2017 DX:Pulmonary no dule Pneumonitis 02/16/2017 DX:Pneumonitis GERD (gastroesophageal reflux disease) 09/12/2017 DX:GERD (gastroesophageal reflux disease) Erectile dysfunction 09/12/2017 DX:Erectile dysfunction Social History Tobacco Use Types Packs/Day Years Used Date Smoking Tobacco: Never Smokeless Tobacco: Never Sex and Gender Information Value Date Recorded Sex Assigned at Not on file Gender Identity Not on file Sexual Orientation Not on file Job Start Date Occupation Industry Not on file Not on file Not on file Obstetrics History Last Filed Vital Signs Vital Sign Reading Time Taken Comments Blood Pressure 125/72 05/03/2024 7:51 AM EST Pulse - - Temperature - - Respiratory Rate - - Oxygen Saturation - - Inhaled Oxygen Concentration - - Weight 82.6 kg (182 lb) 05/03/2024 7:51 AM EST Height 177.8 cm (5' 10 ) 05/03/2024 7:51 AM EST Body Mass Index 26.11 05/03/2024 7:51 AM EST Plan of Treatment Health Maintenance Due Date Last Done Comments DTaP,Tdap,and Td Vaccines (1 - Tdap) 1959 Zoster Vaccines (2 of 2) 08/14/2020 06/19/2020 Cholesterol Screening (Lipid Panel) 05/16/2022 Depression Screening 05/16/2022 Falls Risk Assessment 05/16/2022 Medicare Annual Wellness Visit 05/16/2022 Social Influencers of Health Screening 05/16/2022 Hypertension/CHF/CAD Annual BMP Blood Test 05/29/2022 COVID-19 Vaccine ( season) 2024 03/19/2021 Influenza Vaccine Completed 02/23/2024, , 03/15/2022, Additional history exists Pneumococcal Vaccine: 65+ Years Completed 03/21/2024, 02/23/2018, 03/10/2016 RSV Immunization Patients 60+ Years Old Completed 06/11/2024 HIB Vaccines Aged Out No longer eligi ble based on patient's age to complete this topic HPV Vaccines Aged Out No longer eligi ble based on patient's age to complete this topic Hepatitis A Vaccines Aged Out No long er eligible based on patient's age to complete this topic Hepatitis B Vaccines Aged Out No long er eligible based on patient's age to complete this topic IPV Vaccines Aged Out No longer eligi ble based on patient's age to complete this topic MMR Vaccines Aged Out No longer eligi ble based on patient's age to complete this topic Meningococcal ACWY Vaccine Aged Out N o longer eligible based on patient's age to complete this topic RSV Immunization Patients Under 20 months Aged Out No longer eligible based on patient's age to complete this topic Varicella Vaccines Aged Out No longer eligible based on patient's age to complete this topic Procedures Procedure Name Priority Date/Time Associated Diagnosis Comments TRANSTHORACIC ECHOCARDIOGRAM (TTE) COMPLETE Routine 05/03/2024 7:51 AM EST Nodular calcific aortic valve stenosis from Last 3 Months Results * (ABNORMAL) TRANSTHORACIC ECHOCARDIOGRAM (TTE) COMPLETE (05/03/2024 7:51 AM EST) Left Atrium Minor [place] 5.7 cm CV PACS Left Atrium Major [place] 5.2 cm CV PACS LA Area Sys (A2C) 20 cm2 CV PACS LA Area Sys (A4C) 21 cm2 CV PACS LA Volume (BP) 63 mL CV PACS RA Area 17.1 cm2 CV PACS RA 2D Volume 43 mL CV PACS AV Mean Gradient 30 mmHg CV PACS Ao VTI 84.9 cm CV PACS AV Peak Tre 3.6 m/s CV PACS AV Peak Gradient 52 mmHg CV PACS Aortic Sinus Valsalva 3.3 cm CV PACS Ascending Aorta 3.7 cm CV PACS IVSD 1.0 0.6 - 1.0 cm CV PACS LVIDD 4.1(A) 4.2 - 5.8 cm CV PACS LVIDS 2.6 2.5 - 4.0 cm CV PACS LVOT Mean Tre 0.7 m/s CV PACS LVOT Mean Grad 2 mmHg CV PACS LVOT Peak VTI 21.8 cm CV PACS LVOT Peak Tre 1.0 m/s CV PACS LVOT Peak Gradient 4 mmHg CV PACS LVPWD 1.1(A) 0.6 - 1.0 cm CV PACS MV E' Tissue Velocity Lateral 5 cm/s CV PACS MV E' Tissue Velocity Septal 5 cm/s CV PACS LVOT Stroke Volume 68 mL CV PACS E Wave Deceleration Time 375(A) 119 - 242 ms CV PACS MV Peak A Tre 1.60 m/s CV PACS MV Peak E Tre 1.00 m/s CV PACS MV Mean Gradient 4 mmHg CV PACS MV VTI 49.0 cm CV PACS Mitral Valve Max Velocity 1.8 m/s CV PACS MV Peak Gradient 12 mmHg CV PACS PV Acceleration Time 130 ms CV PACS RV Diastolic Basal Dimension 3.3 2.5 - 4.1 cm CV PACS RV S' 12 cm/s CV PACS TAPSE 26 mm CV PACS E/E' Ratio Septal 20 CV PACS E/E' Ratio Averaged 20 CV PACS Relative Wall Thickness ratio 0.55(A) 0.24 - 0.42 CV PACS LVOT:AV VTI Index 0.26 CV PACS FS 37 % CV PACS LV Mass 2D 147 96 - 200 g CV PACS MV VTI:LVOT VTI ratio 2.2 CV PACS AV Velocity Ratio 0.29 CV PACS E/A Ratio 0.6 0.8 - 2.0 CV PACS E/E' Ratio Lateral 20 CV PACS BSA 2.02 m2 CV PACS LA Volume Index (BP) 31 mL/m2 CV PACS LVIDD Index 2.04 cm/m2 CV PACS LVIDS Index 1.29 cm/m2 CV PACS LV Mass Index 2D 70 50 - 102 g/m2 CV PACS LVOT Stroke Index 0 mL/m2 CV PACS RA 2D Volume Index 21 18 - 32 mL/m2 CV PACS Ascending Aorta Index 1.84 cm/m2 CV PACS RV Free Wall Peak S' 12 cm/s CV PACS RA Major [place] 5.5 cm CV PACS RA Major [place] Index 2.7 2.1 - 2.7 cm/m2 CV PACS MV PHT 109 ms CV PACS AV Area 2D 0.9 cm2 CV PACS CHANDLER Index (2D) 0.45 cm2/m2 CV PACS AV Area Index 0.4 CV PACS LVOT Diameter 2.0 cm CV PACS LVOT Area 3.1 cm2 CV PACS MV Area Continuity Equation 1.4 cm2 CV PACS AV Area Continuity Equation 0.8 cm2 CV PACS CHANDLER Index (VTI) 0.40 cm2/m2 CV PACS LVOT flow 220 mL/s CV PACS Anatomical Region Laterality Modality Ultrasound Narrative 05/14/2024 11:37 AM EST ?Left ventricle cavity size is normal. ??There is mild, concentric left ventricular hypertrophy. ??There is normal left ventricular regional wall motion. ??Left ventricular systolic function is in the normal range with an ejection fraction of 60-65%. ?Normal right ventricular size and systolic function. ?There is likely moderate to severe aortic stenosis-see caveat and measurements below. ?There may be mild, calcific mitral stenosis. ??There is trace mitral regurgitation. ?Compared with prior echocardiogram report from 07/29/2022, findings are roughly stable. Stable, moderate to severe aortic stenosis. Left Ventricle Left ventricle cavity size is normal. There is mild concentric hypertrophy. Systolic function is normal with an ejection fraction of 60-65%. There are no regional LV wall motion abnormalities. Unable to assess diastolic function. Right Ventricle Right ventricle cavity appears normal. Systolic function is normal. Left Atrium Left atrium cavity size is normal. Right Atrium Right atrium cavity is normal. IVC/SVC Inferior vena cava was not well visualized. Mitral Valve The leaflets are moderately thickened. There is moderate to severe annular calcification. There is trace regurgitation. There may be mild mitral stenosis. It was incompletely evaluated. Tricuspid Valve Tricuspid valve structure is normal. There is trace regurgitation. There is no significant tricuspid valve stenosis. Cannot assess RVSP. Aortic Valve Number of aortic valve cusps cannot be determined. The leaflets are moderately thickened and exhibit normal excursion. There is no regurgitation. There is likely moderate to severe stenosis. The VTI ratio is 0.26. The mean gradient is 30 mmHg. The peak gradient is 52 mmHg. Cannot give accurate aortic valve area calculation due to inability to visualize LVOT margins to get an accurate LVOT diameter. Pulmonic Valve The pulmonic valve was not well visualized. No significant pulmonic valve regurgitation. No significant pulmonary valve stenosis noted. Ascending Aorta The aorta appears normal in size. Pericardium Pericardium appears normal. There is no pericardial effusion. Study Details Overall the study quality was adequate. Singh Hernandez MD CV ECHO PROCEDURES from Last 3 Months Care Teams Mash Tub Cooker Relationship Specialty Start Date End Date Singh Hernandez MD [address] [place] [id number] PCP - General Internal Medicine 05/03/24
== END 2024-07-12 12:40 | disposition home or self-care (01) ==
LOC: HO.RESP 12:39
PROVIDERS: PCP Internal Medicine; Visit Provider Hospitalist
DX: J84.9 Interstitial pulmonary disease, unspecified (principal)
CPT/HCPCS: 94010; 94640; 94727; 94729

== ENCOUNTER → 2024-07-12 12:44 | Outpatient (BNV) | payer MEDICARE, SELFPAY | PROVIDERS: PCP Internal Medicine; Visit Provider Internal Medicine Pulmonary Disease | DX: J84.9 Interstitial pulmonary disease, unspecified (principal) | CPT/HCPCS: 94060; 94727; 94729 ==

== ENCOUNTER → 2024-07-16 09:31 | Outpatient (BNVA) | payer MEDICARE, SELFPAY | PROVIDERS: PCP Internal Medicine; Visit Provider Hospitalist | DX: J84.9 Interstitial pulmonary disease, unspecified (principal); J84.10 Pulmonary fibrosis, unspecified; J84.112 Idiopathic pulmonary fibrosis; J98.4 Other disorders of lung; Z99.81 Dependence on supplemental oxygen | CPT/HCPCS: 94618; 99212 ==

== ENCOUNTER 2024-09-05 12:28 | Outpatient (REF) | payer MEDICARE, SELFPAY ==
--- NOTE | ~2024-09-05 | CT_ITS ---
CLINICAL HISTORY: J84.112 - Idiopathic pulmonary fibrosis CT chest without contrast Comparison: CT/SD/SR - CT CHEST WO IV CON - 07/08/23 13:09 EST Findings: Heart is enlarged. Atherosclerosis calcification of the coronary artery. Calcification of the aortic and mitral valve. The visualized thyroid and mediastinum are unremarkable. Stable reticular and ground-glass opacities of the bilateral lungs. Stable traction bronchiectasis of the lower lobes. Multiple pulmonary nodules: 2 mm in the right upper lobe series 11, image 55; right upper lobe pulmonary nodule 4.4 x 5 mm series 11, image 37, previously 4.1 x 4.2 mm. Stable 5 mm pleural-based nodule of the right upper lobe image 77. Stable 6 mm nodule of the left lower lobe image 86. Stable 5 mm parahilar nodule of the right upper lobe image 60. Gallstones in the gallbladder. Limited evaluation of the renal cysts. No acute fractures. IMPRESSION: Stable interstitial pulmonary fibrosis. Stable multiple pulmonary nodules. This document has been electronically signed by: Thelma Shields MD on 09/05/2024 15:07:25
--- OUTSIDE RECORDS SUMMARY | 2024-09-05 14:49 | XMS_ITS | Clinical Summary ---
Author Organization [address] [place] [address] [place] [phone] Phone Care Team Providers Care Postpartum Rn Name Role Phone Singh Hernandez MD Primary Care Provider [phone] Allergies Active Allergy Reactions Criticality Noted Date Comments Lisinopril 10/26/2016 Metoprolol 10/26/2016 Medications amLODIPine (NORVASC) 5 mg tablet Take 1.5 [...] valve stenosis 10/26/2016 Hyperlipidemia 10/26/2016 Hypertension 10/26/2016 Medical History Medical History Date Comments Aortic [...] Recorded Sex Assigned at Not on file Legal Sex Male 7:29 AM EST Gender Identity Not on file Sexual Orientation Not on file Obstetrics History Last Filed [...] Annual BMP Blood Test 05/29/2022 COVID-19 Vaccine (2 - season) 2024 03/19/2021 Influenza Vaccine Completed 02/23/2024, , 03/15/2022, Additional history exists Pneumococcal Vaccine: 50+ Years Completed 03/21/2024, 02/23/2018, 03/10/2016 RSV Immunization [...] patient's age to complete this topic Meningococcal B Vacine Aged Out No lo nger eligible based on patient's age to complete this topic RSV Immunization Patients Under 20 months Aged Out No longer eligible based on patient's age to complete this topic Varicella Vaccines Aged Out No longer eligible based on patient's age to complete this topic Insurance MEDICARE [facility] Care Teams Postpartum Rn Relationship Specialty Start Date End Date Singh Hernandez MD [address] [place] [address] PCP - General Internal Medicine 05/03/24
== END 2024-09-05 12:29 | disposition home or self-care (01) ==
LOC: HO.CT 12:28
PROVIDERS: PCP Internal Medicine; Visit Provider Hospitalist
DX: J84.112 Idiopathic pulmonary fibrosis (principal)
CPT/HCPCS: 71250

== ENCOUNTER → 2024-09-05 12:30 | Outpatient (BNV) | payer MEDICARE, OTHER, SELFPAY | PROVIDERS: PCP Internal Medicine; Visit Provider Nuclear Medicine | DX: J84.112 Idiopathic pulmonary fibrosis (principal) | CPT/HCPCS: 71250 ==

== ENCOUNTER 2024-10-24 08:12 | Outpatient (AMB) | payer MEDICARE, SELFPAY ==
[2024-10-24 08:15] VITALS: BP 126/72; PULSE 81; O2SAT 97; BMI 26.1
--- NOTE | 2024-10-24 08:15 | MHC.OFFVIS ---
Vital Signs 10/24/24 08:15 Height 5 ft 10 in Weight 181 lb 14.102 oz BMI 26.1 BP 126/72 Blood Pressure Location Lt brachial Position Sitting Pulse 81 Pulse Source Pulse Oximeter Pulse Oximetry (%) 97 Oxygen Delivery Method Room Air Intake Visit Reasons: Pulm Fibrosis Aerologist Required: No Accompanied by: Self / Same As Patient Allergies lisinopril Allergy (Severe, Verified 10/24/24 08:20) Rash metoprolol Allergy (Intermediate, Verified 10/24/24 08:20) Rash HPI Comments Details: The patient is a 84-year-old gentleman with a known history of allergic rhinitis, pulmonary nodules and interstitial lung disease. He was evaluated last year. Last year in September 2018 he did have a repeat CT scan of the chest done at [place] demonstrating some slight interval progression of 8 interstitial lung disease. In addition to that he had multiple nodules measuring up to 5 mm in size. The patient has been doing relatively well denies any significant dyspnea on exertion. Denies any coughing or any chest pain. He continues to use the QVAR with good effect. He is due for another CT scan also repeat his pulmonary function studies. His last pulmonary function studies from 2016 demonstrated mild restrictive ventilatory defect consistent with this interstitial lung disease. 08/15/2023 the patient is here for pulmonary follow-up visit. Overall he is doing fairly well. He does have an intermittent cough that seems to be getting worse. Moderate severity. Also dyspnea on exertion, [id number] in severity. The patient did have a CT scan of the chest that we personally reviewed. It appears that he has not been some interval progression of the interstitial lung disease primarily the left lung that was not as involved. Appears to have some areas of ground-glass opacities and also reticular changes suggesting a nonspecific interstitial pneumonia likely fibrotic type. We did talk about considering medications at this point based on his worsening symptoms and worsening findings on the CT scan. The patient is agreeable to starting a small dose of prednisone. We did talk about Ofev but the patient would like to hold off on that at this time. Right now he is did not with significant issues with his in health now that she has been diagnosed with stage IV renal cell cancer. Therefore here given start 10 mg of prednisone and then taper to 10 mg every other day. After 6-8 weeks given wean off it. Will follow-up in 3 months. If the patient has any worsening symptoms prior to that he will call for an earlier assessment. 11/23/2023 the patient is here for a pulmonary follow-up visit. He completed the course of prednisone. Did not see any significant improvement in his breathing. He is still going to the gym and staying active. He has still grieving the loss of his who a couple months ago. The patient does have significant crackles on examination. In view of his worsening interstitial lung disease in the appearance of idiopathic pulmonary fibrosis I do believe that he had be a good candidate for Ofev. Will go ahead and submit a prescription at this time. Will have also undergo a chest x-ray and PFTs in the coming months. 04/25/2024 the patient is here for pulmonary follow-up visit. The patient has been profoundly worsening dyspnea on exertion. Moderate severity. Seems to be progressively getting worse. He has been tolerating the Ofev. He has been tolerating the medication. He has also been complaining of worsening cough. He did follow-up with his primary care doctor recently. He set up to have an echocardiogram. His memory seems to be more significant at this time. During the visit we did go for a walking oximetry and the patient did desaturate down to 88% with activity. I did explain to him that he does qualify for oxygen. Although at this point like to hold off. We are going to reassess again in 3 months after he comes back with PFTs. Will have him get an x-ray as well. I suspect that he may have a lower respiratory infection. Will treat him a so. Also the cardiac issues may be contributing to his worsening respiratory symptoms. At least from a pulmonary fibrosis standpoint the alpha should be helping and also believe that his exam is really unchanged from a scarring standpoint. 07/16/2024 the patient is here for a pulmonary follow-up visit. Overall he is still about the same. Complains of dyspnea on exertion. Moderate severity. Seems to be little bit worse now. During the last visit he did qualify for oxygen but he opted not to using at that time. We again did a 6 minute walk test and again he quickly desaturated to 88%. The patient is now willing to use the oxygen. We did try him a portable oxygen concentrator and on 2 L pulse he was able to maintain a pulse ox of 94% with activity which is reassuring. Will go ahead and request that from a local [employer]. In the meantime he continues on the Ofev for the pulmonary fibrosis. He has been tolerating it although he does have some diarrhea. He did undergo pulmonary function studies that we did review together I did compare to his previous to PFTs from the last few years. There appears to be interval worsening of his total lung capacity and also diffusing capacity. Therefore did recommend he go back on some prednisone as well. He is willing to do so but it affected his sleep. Therefore he is going to start at 10 mg and then decrease to 5 mg if he can not sleep. He will stay on the prednisone for now and will plan to repeat a CT scan a couple months. 10/24/2024 the patient is here for pulmonary follow-up visit. Overall the patient has been doing fair. He continues to have dyspnea on exertion. He did have an overnight oximetry demonstrating that he did have hypoxia below 88% for about 20 minutes. The patient did not want to start oxygen at nighttime. He does feel like he is getting more short of breath with activity though. Moderate severity. He does go to the gym. Also gets affected by humidity. He has been tolerating the prednisone also the office. However he cut down the prednisone to half a tablet because it was affecting his sleep. Seems to be doing okay on the 5 mg. He did have a repeat CT scan of the chest which I personally reviewed although no significant changes there is a slight increase in interstitial markings that I can appreciate. Therefore indeed this is a progressive disease. He understands medication will help slow down but is not going to completely Holter reversal. And he is aware this and he is content. We did go for a walking oximetry the patient did desaturate down to 86% with activity. We let him rest and then put him on 2 L pulse any was able to maintain a pulse ox of 91% with activity. Will start him on a POC O2 L with activity. The patient would like to hold off on the home concentrator at this time. Will follow-up sometime in June with repeat PFTs. If he has any issues prior to this he will call for an earlier assessment. [facility] Medical History (Updated 07/16/24 @ 22:23 by Yong Cheema MD) Chronic restrictive lung disease IPF (idiopathic pulmonary fibrosis) Aortic ejection murmur Chronic respiratory failure ILD (interstitial lung disease) Pulmonary fibrosis determined by high resolution computed tomography Social History Patient Tobacco Use Status: Never used Tobacco Review of Systems Const Denies chills, Denies fatigue, Denies fever(s), Denies weight gain and Denies weight loss ENT Denies dizziness, Denies lip swelling and Denies tongue swelling Card Denies chest pain, Denies leg edema, Denies lightheadedness, Denies palpitations, Reports dyspnea on exertion and Denies other Resp Denies cough and Reports dyspnea on exertion GI Denies hematochezia and Denies change in stool character Musc Denies abnormal gait, Denies muscle weakness, Denies numbness, Denies radiating pain into limb and Denies tingling Neuro Denies abnormal gait, Denies dizziness, Denies numbness and Denies tingling Psych Denies no additional complaints Endo Denies fatigue and Denies palpitations Freedom/Lymph Denies easy bleeding and Denies lymphadenopathy Aller/Immun Denies lip swelling and Denies tongue swelling Physical Exam Vital Signs: Last Vital Signs Pulse 81 10/24/24 08:15 BP 126/72 10/24/24 08:15 Pulse Ox 97 10/24/24 08:15 Oxygen Delivery Method Room Air 10/24/24 08:15 BMI result Body Mass Index 26.1 Const General: alert HEENT General nose exam: Abnormal external nose present and Nasal discharge present Eyes Pupils: Equal, round and reactive pupils present Neck Neck: Yes normal visual inspection, Yes full ROM and Yes no lymphadenopathy Chest Chest palpation & inspection: normal inspection of the chest Resp Auscultation: rales bilateral at the base and diminished lung sounds Cardio Rate: regular rate Rhythm: regular rhythm Heart sounds: S1 normal heart sound present, S2 normal heart sound present, Murmur heart sound present systolic III/ and at the right sternal border and Normal, physiologic split S2 sound present GI Palpation (GI): Soft to palpation and nontender Auscultation: normal bowel sounds General: Yes no CVA tenderness Back/Spine/Pelvis Back: no CVA tenderness Skin General skin exam: rashes and/or lesions noted Neuro Cranial nerves: Yes Equal, round and reactive pupils present Office Procedures 6 Minute Walk Time:: 08:52 SPO2 % at rest: 94 Pulse at rest: 78 SPO2 % during excercise: 86 Pulse during excercise: 89 Distance in yards walked: 200 Alba Score: 4 Supplemental Oxygen: The patient desaturated to 86% with activity on room air. He was placed on 2 L pulse after resting maintain a pulse ox of 91% on 2 L pulse. [id number] - 6 Minute Walk Assessment & Plan Assessment & Plan (1) ILD (interstitial lung disease): Code(s): J84.9 - Interstitial pulmonary disease, unspecified Category: Medical (2) Pulmonary fibrosis determined by high resolution computed tomography: Code(s): J84.10 - Pulmonary fibrosis, unspecified Category: Medical (3) IPF (idiopathic pulmonary fibrosis): Code(s): J84.112 - Idiopathic pulmonary fibrosis Category: Medical (4) Chronic restrictive lung disease: Comment: TLC 71%->60%->51% Code(s): J98.4 - Other disorders of lung Category: Medical Plan -continue OFEV -continue Prednisone 10mg->5mg daily -start oxygen 2l/pulse with activity (POC) through [employer] -PFTs 06/2025 -Needs to continue with reflux diet and head of bed elevated to minimize micro aspirations into the lungs. -nasal rinsing with neti bottle with distilled water only -F/U 06/2025 Orders: Orders PFT pulmonary function test 07/12/25 J84.112 - Idiopathic pulmonary fibrosis Medications: New prednisone 5 mg PO DAILY 90 tabs 3RF 90 days Coding Level of Care Code Est Pt Level 4 (52255) Complex EM visit Add On G2211 Diagnoses ILD (interstitial lung disease) J84.9 Pulmonary fibrosis determined by high resolution computed tomography J84.10 IPF (idiopathic pulmonary fibrosis) J84.112 Chronic restrictive lung disease J98.4 CPT Codes Coding ([id number]) Time Spent (min) 18
[2024-10-24 08:53] VITALS: PULSE 78; O2SAT 94
== END 2024-10-24 08:44 | disposition home or self-care (01) ==
PROVIDERS: PCP Internal Medicine; Visit Provider Hospitalist
DX: J84.9 Interstitial pulmonary disease, unspecified (principal); J84.10 Pulmonary fibrosis, unspecified; J84.112 Idiopathic pulmonary fibrosis; J98.4 Other disorders of lung
CPT/HCPCS: 99214; G2211

== ENCOUNTER → 2024-10-24 08:12 | Outpatient (BNVA) | payer MEDICARE, SELFPAY | PROVIDERS: PCP Internal Medicine; Visit Provider Hospitalist | DX: J84.9 Interstitial pulmonary disease, unspecified (principal); J84.112 Idiopathic pulmonary fibrosis; J84.10 Pulmonary fibrosis, unspecified; J98.4 Other disorders of lung | CPT/HCPCS: 94618; 99212 ==